=== PATIENT | male | born 1985 | race Caucasian/White ===

== ENCOUNTER 2016-09-24 20:59 | Emergency (ER) | payer SELFPAY ==
[~2016-09-24 20:59] MED LIST: PEPCID DPS20 MG PO
--- NOTE | 2016-09-25 06:57 | ER ---
ADMIT: 09/24/2016 RM/LOC: ER [facility] MR#: [id number] [address] [id number] [place], [place] [id number] Emergency Room Report SEX: M AGE: 31 : 1985 DATE: 09/24/2016 TIME: 2059 hours. Please refer to my T-sheet for complete H and P. HISTORY OF PRESENT ILLNESS: Briefly, the patient is a 31-year-old, comes in with a bump in his groin. It has been there for about 2 days. Denies any trauma. He has been doing a little lifting. Rates it 10/20. He is sexually active. PHYSICAL EXAMINATION: VITAL SIGNS: Stable. : Groin shows right inguinal lymph node. No hernia is felt. He has a little bit of folliculitis in his pubic region. EMERGENCY DEPARTMENT COURSE: Uneventful. I gave him a dose of doxycycline. He was ready for discharge. ASSESSMENT: Right groin lymphadenopathy. PLAN: Doxycycline 100 mg b.i.d. for 7 days. Follow up with Dr. Wharton next week to recheck. Return if worse. Nishant Terrell MD/ stephen JOB #: [id number] CC: Nishant Terrell MD, Attending Physician Juan Diego Wharton MD, Family Physician
== END 2016-09-24 22:00 | disposition home or self-care (01) ==
LOC: ER 20:59
DX: R59.0 Localized enlarged lymph nodes (principal); F17.210 Nicotine dependence, cigarettes, uncomplicated